=== PATIENT | male | born 1990 | race Native Hawaiian/Other Pacific Islander ===

== ENCOUNTER 2017-01-07 13:13 | Outpatient (CLI) | payer OTHER | END 2017-01-07 20:16 | disposition home or self-care (01) | LOC: RAD 13:13 | DX: Z98.1 Arthrodesis status (principal) ==

== ENCOUNTER 2017-05-27 10:55 | Emergency (ER) | payer OTHER ==
[~2017-05-27] VITALS: Ht 190.5 cm; Wt 100.7 kg
== END 2017-05-27 12:24 | disposition home or self-care (01) ==
LOC: ED 10:55
PROC: 0X9J3ZZ Drainage of Right Hand, Percutaneous Approach (ICD-10-PCS; principal; 2017-05-27)
DX: S60.111A Contusion of right thumb with damage to nail, initial encounter (principal); W23.0XXA Caught, crushed, jammed, or pinched between moving objects, initial encounter; Y92.89 Other specified places as the place of occurrence of the external cause
CPT/HCPCS: 99283

== ENCOUNTER 2019-01-16 11:15 | Outpatient (CLI) | payer OTHER | END 2019-01-16 22:23 | disposition home or self-care (01) | LOC: MRI 11:15 | DX: M54.12 Radiculopathy, cervical region (principal) ==

== ENCOUNTER 2019-03-19 00:45 | Emergency (ER) | payer OTHER ==
[~2019-03-19] VITALS: Ht 190.5 cm; Wt 99.8 kg
[2019-03-19 01:21] LABS: PLATELET COUNT 183 K/uL (142-355)
[2019-03-19 01:22] LABS: POTASSIUM 3.5 mmol/L (3.6-5.2); SODIUM 137 mmol/L (136-145)
[2019-03-19 04:35] VITALS: BP 112/56; TEMP 97
== END 2019-03-19 05:02 | disposition home or self-care (01) ==
LOC: ED 00:45
PROVIDERS: Emergency Medicine
DX: R07.89 Other chest pain (principal)
CPT/HCPCS: 36415; 80053; 80307; 82550; 82553; 84484; 85027; 93005; 99283

== ENCOUNTER 2019-04-24 13:01 | Outpatient (CLI) | payer OTHER | END 2019-04-24 21:43 | disposition home or self-care (01) | LOC: MRI 13:01 | DX: M47.26 Other spondylosis with radiculopathy, lumbar region (principal) ==

== ENCOUNTER 2020-08-05 10:45 | Outpatient (CLI) | payer OTHER | END 2020-08-05 23:29 | disposition home or self-care (01) | LOC: RAD 10:45 | DX: M54.12 Radiculopathy, cervical region (principal) ==

== ENCOUNTER 2021-04-20 14:07 | Outpatient (CLI) | payer OTHER | END 2021-04-20 23:50 | disposition home or self-care (01) | LOC: MRI 14:07 → RAD 14:07 | PROVIDERS: ATTEND Neurological Surgery | DX: M54.16 Radiculopathy, lumbar region (principal) ==

== ENCOUNTER 2021-07-03 09:31 | Outpatient (CLI) | payer OTHER | END 2021-07-03 19:09 | disposition home or self-care (01) | LOC: RAD 09:31 | PROVIDERS: ATTEND Physician Assistant | DX: R10.9 Unspecified abdominal pain (principal) ==